=== PATIENT | female | born 1990 | race Native Hawaiian/Other Pacific Islander ===

== ENCOUNTER 2017-01-11 11:57 | Emergency (ER) | payer BC ==
[2017-01-11 13:06] LABS: BASO # 0.1 K/uL (0.0-0.2); EOS # 0.6 K/uL (0.0-0.7); EOS % 9.3 % (0.0-4.0); HEMATOCRIT 38.3 % (34.0-47.0); LYMPH # 2.7 K/uL (1.0-4.3); LYMPH % 43.2 % (20.0-40.0); MEAN CELL VOLUME 91.3 fL (81.0-99.0); MEAN CORPUSCULAR HEMOGLOBIN 30.9 pg (27.0-31.0); MEAN CORPUSCULAR HGB CONC 33.9 g/dL (33.0-37.0); MONO # 0.7 K/uL (0.0-0.8); NRBC % 0.1 % (0.0-2.0); RED CELL DISTRIBUTION WIDTH 12.6 % (11.5-14.5); WHITE BLOOD COUNT 6.2 K/uL (4.8-10.8)
[2017-01-11 13:16] LABS: CHLORIDE 102 mmol/L (98-107)
[2017-01-11 13:17] LABS: POTASSIUM 3.6 mmol/L (3.6-5.2); SODIUM 137 mmol/L (132-148)
[2017-01-11 13:19] LABS: BILIRUBIN,TOTAL 0.7 mg/dL (0.2-1.3); CARBON DIOXIDE 25 mmol/L (22-30); GFR AFRICAN-AMERICAN > 60
[2017-01-11 13:20] LABS: ALB/GLOB RATIO 1.7 (1.0-2.1); ALKALINE PHOSPHATASE 34 U/L (38-126); ALT/SGPT 29 U/L (9-52); AST/SGOT 26 U/L (14-36); BLOOD UREA NITROGEN 10 mg/dL (7-17); CALCIUM 8.3 mg/dl (8.6-10.4); GLUCOSE,RANDOM 79 mg/dL (65-105); TOTAL PROTEIN 6.8 g/dL (6.3-8.3)
[2017-01-11 13:47] LABS: RBC URINE 4 /hpf (0-3); URINE BILIRUBIN NEGATIVE (NEGATIVE); URINE BLOOD NEGATIVE (NEGATIVE); URINE COLOR Yellow (YELLOW); URINE GLUCOSE (UA) NORMAL (Normal); URINE KETONE NEGATIVE (NEGATIVE); URINE LEUKOCYTE ESTERASE NEG Leu/uL (Negative); URINE PROTEIN NEGATIVE (NEGATIVE); URINE UROBILINOGEN NORMAL mg/dL (0.2-1.0); WBC URINE < 1 /hpf (0-5)
--- NOTE | 2017-01-11 15:15 | US ---
HISTORY: Pain COMPARISON: None available. TECHNIQUE: Transabdominal and transvaginal pelvic ultrasound was performed. FINDINGS: UTERUS: Measures 6.7 x 3.4 x 4.2 cm. Anteverted, normal in size and appearance. No fibroid or other mass lesion seen. ENDOMETRIUM: Measures 9 mm in diameter. Normal in appearance. CERVIX: No cervical abnormality identified. RIGHT OVARY: Measures 4.3 x 3.0 x 3.5 cm. No solid mass. Normal flow. There are simple cysts measuring 1.8 cm and 0.9 cm. LEFT OVARY: Measures 3.5 x 2.0 x 3.2 cm. No solid mass. Normal flow. There are small septated complicated measuring 1.0 cm and 1.3 cm. FREE FLUID: No significant free fluid noted. OTHER FINDINGS: None. IMPRESSION: Unremarkable pelvic ultrasound.
--- NOTE | 2017-01-11 15:18 | C.PDOC ---
History Of Present Illness 26 year old female presents to the ED for evaluation of sudden onset of lower abdominal pain which began around 1 hour prior to arrival. Patient states her pain was severe at first but then self-improved. She reports that she had a normal bowel movement yesterday and denies fever, chills, nausea, vomiting, diarrhea, dysuria, hematuria, vaginal discharge/bleeding. Time Seen by Provider: 01/11/17 12:31 Chief Complaint (Nursing): Abdominal Pain History Per: Patient History/Exam Limitations: no limitations Onset/Duration Of Symptoms: Hrs (1), Sudden Onset Current Symptoms Are (Timing): Still Present Location Of Pain/Discomfort: Other (lower abdomen ) Radiation Of Pain To:: None Quality Of Discomfort: "Pain" Associated Symptoms: denies: Fever, Chills, Nausea, Vomiting, Urinary Symptoms Last Bowel Movement: Yesterday Additional History Per: Patient Past Medical History Reviewed: Historical Data, Nursing Documentation, Vital Signs Vital Signs: Last Vital Signs Temp 97.7 F 01/11/17 15:23 Pulse 73 01/11/17 15:23 Resp 18 01/11/17 15:23 BP 106/69 01/11/17 15:23 Pulse Ox 99 01/11/17 18:00 - Medical History PMH: Asthma Surgical History: No Surg Hx Family History: States: Unknown Family Hx - Social History Hx Alcohol Use: Yes Hx Substance Use: No Review Of Systems Constitutional: Negative for: Fever, Chills Gastrointestinal: Positive for: Abdominal Pain. Negative for: Nausea, Vomiting , Diarrhea, Constipation Genitourinary: Negative for: Dysuria, Hematuria, Vaginal Discharge, Vaginal Bleeding Physical Exam - Physical Exam Appears: Non-toxic, No Acute Distress Skin: Normal Color, Warm, Dry Eye(s): bilateral: Normal Inspection Oral Mucosa: Moist Neck: Supple Chest: Symmetrical, No Deformity, No Tenderness Cardiovascular: Rhythm Regular, No Murmur Respiratory: Normal Breath Sounds, No Rales, No Rhonchi, No Wheezing Gastrointestinal/Abdominal: Soft, Tenderness ((+) suprapubic tenderness), No Guarding, No Rebound Extremity: Normal ROM, Capillary Refill (less than 2 seconds ) Neurological/Psych: Oriented x3, Normal Speech, Normal Cognition Gait: Steady ED Course And Treatment - Laboratory Results Result Diagrams: 01/11/17 13:02 01/11/17 13:02 O2 Sat by Pulse Oximetry: 99 (on RA) Pulse Ox Interpretation: Normal - Other Rad abdomen obstructive series XR X-Ray: Interpreted by Me, Viewed By Me, Read By Radiologist Interpretation: PROCEDURE: Radiographs of the chest and abdomen (obstructive series). HISTORY: Abd Pain. COMPARISON: No prior. TECHNIQUE: AP radiograph of the chest, with upright and supine radiographs of the abdomen. FINDINGS: CHEST: Lungs: Clear. Cardiovascular: Normal size heart. No pulmonary vascular congestion. Pleura: No pleural fluid. No pneumothorax. Other findings: None. ABDOMEN AND PELVIS: Bowel: There is large amount of stool in the colon. The bowel gas pattern is nonobstructive. No evidence of mechanical obstruction. Free air: None. Bones: Unremarkable. Other findings : None. IMPRESSION: Severe constipation. No evidence of mechanical bowel obstruction. Clear lungs. - CT Scan/US Abdomen/pelvis/transvaginal US Other Rad Studies (CT/US): Interpreted By Me, Read By Radiologist, Radiology Report Reviewed CT/US Interpretation: HISTORY: Pain. COMPARISON: None available. TECHNIQUE: Transabdominal and transvaginal pelvic ultrasound was performed. FINDINGS: UTERUS: Measures 6.7 x 3.4 x 4.2 cm. Anteverted, normal in size and appearance. No fibroid or other mass lesion seen. ENDOMETRIUM: Measures 9 mm in diameter. Normal in appearance. CERVIX: No cervical abnormality identified. RIGHT OVARY: Measures 4.3 x 3.0 x 3.5 cm. No solid mass. Normal flow. There are simple cysts measuring 1.8 cm and 0.9 cm. LEFT OVARY: Measures 3.5 x 2.0 x 3.2 cm. No solid mass. Normal flow. There are small septated complicated measuring 1.0 cm and 1.3 cm. FREE FLUID: No significant free fluid noted. OTHER FINDINGS: None. IMPRESSION: Unremarkable pelvic ultrasound. Progress Note: Bloodwork, Urinalysis, Obstructive Series XR, and US ordered and reviewed. Patient is refusing pain medication at this time. On reassessment, patient is resting comfortably, showing no signs of distress and states her pain continues to self-improve. Discussed dietary changes with patient and provided her with copies of lab and imaging results. Patient is stable for discharge and is advised to follow up with her PMD/[facility] within 2-5 days for further evaluation. Reassessment Condition: Improved Disposition - Disposition Disposition: HOME/ ROUTINE Disposition Time: 15:17 Condition: STABLE Additional Instructions: Increase your fiber and water intake. Follow up with your primary medical doctor or clinic in 2-5 days for further evaluation. Take medications as prescribed. Return to the emergency department at any time if symptoms persist or worsen. Prescriptions: Polyethylene Glycol 3350 [Miralax] 17 gm PO DAILY #85 gm Instructions: Ovarian Cyst (ED), Constipation (ED) Forms: [employer] (Uzbek) - Clinical Impression Clinical Impression: Constipation, Ovarian cyst - PA / PARTS DRIVER / Resident Statement MD/DO has reviewed & agrees with the documentation as recorded. - Scribe Statement The provider has reviewed the documentation as recorded by the Scribe (Bharati Davis) All medical record entries made by the Scribe were at my direction and personally dictated by me. I have reviewed the chart and agree that the record accurately reflects my personal performance of the history, physical exam, medical decision making, and the department course for this patient. I have also personally directed, reviewed, and agree with the discharge instructions and disposition.
[2017-01-11 15:24] VITALS: BP 106/69; PULSE 73; RESP 18; TEMP 97.7; O2SAT 99
== END 2017-01-11 15:34 | disposition home or self-care (01) ==
LOC: C.ER 11:57
DX: N83.291 Other ovarian cyst, right side (principal); K59.00 Constipation, unspecified